=== PATIENT | male | born 1960 | race Caucasian/White ===

== ENCOUNTER → 2018-11-10 08:24 | Outpatient (CLI) | payer OTHER, SELFPAY ==
--- NOTE | 2018-11-10 08:27 | RAD_ITS ---
STUDY: X-RAY - LEFT WRIST REASON FOR EXAM: Male, 57 years old. Pain. TECHNIQUE: 3 view(s) of the wrist were obtained. COMPARISON: None. FINDINGS: Normal visualized distal radius and ulna. Normal radiocarpal articulation. Normal distal radioulnar articulation. Normal carpal bones. Normal carpal articulations. Normal carpometacarpal articulation of the thumb. Normal second through fifth carpometacarpal articulations. Normal visualized metacarpal bones. The soft tissue structures are unremarkable. RAD/Wrist min 3 Views IMPRESSION: Normal x-ray examination of the wrist. Electronically Signed: Gideon Krueger MD at 9:40 EDT Tel , Service support ,
== END ==
PROVIDERS: Family Provider Nurse Practitioner Family; PCP Nurse Practitioner Family; Referring Provider Physician Assistant; Visit Provider Physician Assistant
DX: R52 Pain, unspecified (principal)
CPT/HCPCS: 73110

== ENCOUNTER → 2020-01-28 09:46 | Outpatient (CLI) | payer OTHER, SELFPAY ==
[2020-01-28 09:37] VITALS: BMI 28.8
--- NOTE | 2020-01-28 09:47 | RAD_ITS ---
STUDY: X-RAY - RIGHT SHOULDER REASON FOR EXAM: Male, 59 years old. CHRONIC PAIN TECHNIQUE: 4 view(s) of the shoulder. COMPARISON: None. FINDINGS: Normal glenohumeral articulation. Normal acromioclavicular joint. Normal acromion. Normal humeral head and visualized proximal humerus. The soft tissue structures are unremarkable. Normal visualized pulmonary apex. RAD/Shoulder min 2 Views IMPRESSION: Normal x-ray examination of the shoulder. Electronically Signed: Doug Hernadez MD at 19:41 EDT , Service support ,
== END ==
PROVIDERS: PCP Nurse Practitioner Family; Referring Provider Physician Assistant; Visit Provider Physician Assistant
DX: M25.511 Pain in right shoulder (principal)
CPT/HCPCS: 73030

== ENCOUNTER 2023-04-28 11:40 | Day surgery (SDC) | payer OTHER, SELFPAY ==
[2023-04-28 12:11] VITALS: BP 117/78; PULSE 68; RESP 16; TEMP 36.2; O2SAT 98; BMI 30.7
[2023-04-28] MEDS: Lactated Ringers 1,000 ML 15 ML IV (12:26)
[2023-04-28] MEDS: Cefazolin 2 GM in 0.9% Normal Saline (100mL Bag) 100 ML IV (13:49)
[2023-04-28] MEDS: Lidocaine 1% /Epi 1:100 (20ml) 20 ML Vial (13:57)
[2023-04-28] MEDS: Bupivacaine 0.5% PF 10 ML VIAL (13:57)
[2023-04-28 14:35] VITALS: BP 117/78; BP 125/91; PULSE 79; RESP 18; TEMP 37.1; O2SAT 93
[2023-04-28 14:45] VITALS: BP 117/78; BP 127/85; PULSE 71; RESP 18; O2SAT 93
[2023-04-28 14:55] VITALS: BP 117/78; BP 126/95; PULSE 64; RESP 18; TEMP 36.6; O2SAT 99
--- NOTE | 2023-04-28 14:59 | PCM.OPRPT ---
Report of Operation Date of Procedure: 04/28/23 Description of Surgical Findings:: Preoperative diagnosis: Right septic olecranon bursitis Postoperative diagnosis: Right septic olecranon bursitis versus gouty bursitis Procedure: Right septic olecranon bursectomy with irrigation and debridement Surgeon: Cleve Smith DO [place]in Supervisor: Stephenie Sy PA-C Anesthesia: General endotracheal Anesthesiologist: Dr. Soria Complications: None apparent Drains: None Estimated blood loss: 75 cc Urinary output: None IV fluids: 1000 cc crystalloid Specimens: Tissue culture right olecranon bursa Permanent pathologic specimen right olecranon bursa Surgical implants: None Surgical indications: This is a 62-year-old male seen in the outpatient setting for a draining right elbow wound. There has been surrounding erythema. Cultures have been negative to date. Patient has had intermittent fevers. Redness and wound has not resolved with oral antibiotics and local wound care. A CT scan was obtained and demonstrated fluid collection overlying the olecranon as well as remote postsurgical changes suspected to be a coronoid suture repair with suture knots tied over the olecranon dorsal cortex. We discussed due to the persistent bursitis, olecranon bursectomy and irrigation debridement was indicated. The risks, benefits, alternatives to the procedure reviewed with patient at length. Medical and cardiac clearance were obtained prior to the procedure. Informed consent was obtained in the office. Risks of the procedure included but were not limited to bleeding, persistent infection, loss of life or limb, persistent swelling, persistent pain, neurovascular injury, DVT or PE, tendon injury, wound complications, stiffness. Description of procedure: Patient was seen in preoperative holding area. He was identified by name, medical record number, date of . The operative extremity was marked with a surgical marker. We confirmed informed consent with the patient and all questions were answered to her satisfaction. Anesthesia consent was also obtained by the anesthesia team prior to procedure. At time of his procedure, patient was brought to the operative suite and positioned supine on a standard operating table. 2 g Ancef was administered room time. General anesthesia was induced and laryngeal mask airway placed. All bony prominences well-padded. Patient was positioned in lateral decubitus position with the left side up. An axillary roll was placed. Fibular head was free on the down leg. All bony prominences were well-padded in the lateral decubitus position. We positioned the patient in the lateral decubitus position with a beanbag. The operative extremity was brought over a radiolucent post. A well-padded pneumatic tourniquet was applied to right upper arm. We then prepped and draped the right upper extremity in normal, sterile orthopedic fashion after spending the bed 90 degrees. We performed a timeout with all parties in attendance in agreement with the side, site, operation to be performed. No concerns were voiced elected proceed with surgery. Tourniquet was not inflated throughout the entirety of the case. A 5 x 5 mm wound was ellipticized in conjunction with approximately 5 cm longitudinal incision overlying the olecranon. Wound and subjacent bursal tissue was sent for tissue culture. Superficial layer of the bursal sac was excised after elevating it from the skin flaps both radially and ulnarly. I carried the bursal excision deeper down to the level of the ulnar periosteum and fascia. Triceps fascia was left intact. Within the bursal tissue, white crystal tissue was encountered suspicious for gout. Bursa was then excised and sent for permanent specimen. Suture knot was identified along the cortex of the olecranon. Suture was excised sharply with a 15 blade scalpel. No significant fluid or gross purulence was encountered. Was wound was then copiously irrigated normal saline solution. I anesthetized the skin flaps and surrounding tissues with 10 cc 1% lidocaine with epinephrine 1: 100,000 to assist with hemostasis. I then utilized a 0 Vicryl to reduce space by reapproximating the subcutaneous tissue to both the triceps fascia and the ulnar periosteum. Dermis was reapproximated with 3-0 Vicryl suture. Skin was finally reapproximated with horizontal mattress 3-0 nylon suture. Sterile compression dressing was then applied after the limb was cleansed. A well-padded posterior elbow fiberglass splint was then applied with the wrist free in 90 degrees of elbow flexion. Patient was then repositioned in the supine position. He was safely extubated in the operative suite and transferred to her gurney and subsequently to PACU in stable condition. Need for skilled assistant inventory manager: Stephenie Sy PA-C was critical to the outcome of the case. During the course of the procedure the physician assistant inventory manager played a vital role. Her intimate knowledge of my steps in the procedure aided in safe and expedient completion of the procedure. The PA played a vital role in positioning particularly in obtaining the appropriate positioning. The PA was also vital in the retraction of soft tissues during the exposure and protecting vital structures. She also played a vital role in closure with my direct supervision. Post Operative Plan: Weightbearing: Nonweightbearing operative extremity Antibiotics: Ancef 2 g x 1 dose preoperatively, continue doxycycline twice daily for 10 days postoperatively DVT Prophylaxis: Early ambulation, restart home aspirin postop day 1 Watkins: None Dressing: Maintain splint until follow-up keep in a clean, dry and intact. X-Rays: None Pain Medication: Meally prescription sent today Follow-up: 2 week post-operatively with me in the office for wound check
--- NOTE | 2023-04-28 15:03 | PCM.DC ---
Discharge Instructions Follow Up Care Test Results: Test results from this visit will be discussed in further detail at your follow-up appointment, if applicable. Discharge Plan Admission Primary Reason for Your Visit: Right olecranon bursectomy Attending Provider: Cleve Smith Primary Care Provider: William Dickerson NP Instructions Additional Instructions / Restrictions: Follow preprinted instructions from your surgeons office Discharge Orders/Prescriptions Prescriptions: New doxycycline hyclate 75 mg tablet 75 mg PO BID 10 Days Qty: 20 0RF hydrocodone-acetaminophen 5-325 mg tablet 1 tab PO Q6H PRN (Reason: pain) 7 Days Qty: 28 0RF Continued meloxicam [Mobic] 15 mg tablet 15 mg PO DAILY Qty: 30 1RF Referrals / Follow Up: William Dickerson SCHOOL BUS DRIVER/CUSTODIAN, SCHOOL BUS DRIVER/CUSTODIAN-C [Primary Care Provider] - Disposition Disposition (needs filled in before D/C Order can be placed): Home, Self Care
[2023-04-28 15:35] VITALS: BP 117/78
--- NOTE | 2023-04-28 16:09 | BUR_PTH ---
PATIENT: JOSÉ ANTONIO MURRAY I LOC: [facility] [place] U#:[id number] AGE/SX: 62/M ROOM: RE04/28/[address]: Dr. Cleve Smith DO : 1960 BED: DIS: 04/28/2023 SPEC #: [id number] RECD: 04/28/23 16:09 STATUS: JD REYogesh #: [id number] SHEA: 04/28/23 16:[address]: Cleve Smith DEPT: SURGICAL PATHOLOGY RECD BY: Danya Wolff ENTERED: 04/29/23 07:50 SP TYPE: BURSA OTHR DR: William Dickerson, ANIMAL DAMAGE CONTROL AGENT-C Tissues: Bursa, NOS Procedures: Special Stain Group I Surgery Specimen Level III AFB Stain (control) GMS Stain (control) HEADER OPERATION: Right olecranon bursectomy PRE-OP DIAGNOSIS: Right elbow bursitis TISSUE SUBMITTED: Right elbow bursa MICROSCOPIC DIAGNOSIS Right elbow bursa, bursectomy: Necrotizing and non-necrotizing granulomatous inflammation. Negative for acid-fast bacilli and fungal organisms. See comment. AM:gema 05/02/2023 COMMENT AFB and GMS stains with matched controls were used in the evaluation of this case. Polarizable light microscopy does not reveal crystalline debris. Clinical correlation is suggested. MICROSCOPIC DESCRIPTION Slides are reviewed. GROSS DESCRIPTION Received in fixative is one container labeled with the patient's name and designated right elbow bursa. The specimen consists of multiple irregular and indurated fragments of pink-brink soft tissue that in aggregate measure 4.7 x 4.0 x 1.2 cm. Credit Checker sections are submitted in one cassette. / AM:gema 04/29/2023 TC:3 CPT: 25129, 27120 x2
== END 2023-04-28 15:45 | disposition home or self-care (01) ==
LOC: SDC 11:43 → AC 11:45
PROVIDERS: PCP Nurse Practitioner Primary Care; Referring Provider Student in an Organized Health Care Education/Training Program; Visit Provider Student in an Organized Health Care Education/Training Program
PROC: (CPT 24105; principal; 2023-04-28 13:10)
DX: M70.21 Olecranon bursitis, right elbow (principal); F17.220 Nicotine dependence, chewing tobacco, uncomplicated; L03.113 Cellulitis of right upper limb; E66.8 Other obesity; Z68.31 Body mass index [BMI] 31.0-31.9, adult; Z71.3 Dietary counseling and surveillance; Z86.16 Personal history of COVID-19
CPT/HCPCS: 24105; 01710; 87070; 87075; 87176; 87205; 88304; 88312; J7120; J2405

== ENCOUNTER → 2024-03-23 | Outpatient (CLI) | payer OTHER, SELFPAY ==
[2024-03-23 12:20] LABS: Absolute Neutrophil Count 4.5 X10^3/uL (2.0-7.7); Basophil# 0.06 X10^3/uL; Basophil% 0.8 % (0-1); Eosinophil# 0.18 X10^3/uL; Eosinophils% 2.4 % (0-5); Hematocrit 48.8 % (40-54); Hemoglobin 16.5 g/dL (13.0-16.5); Mean Corp Hgb Conc 33.8 g/dL (32-36); Mean Corpuscular Volume 91.6 fL (80-94); Monocyte# 0.67 X10^3/uL; NRBC Flagged by Analyzer 0 % (0-5); Neutrophil # 4.46 X10^3/uL (2.7-7.7); Neutrophil % 60.3 % (47-70); Platelet Count 293 K/mm3 (150-450); RBC Distribution Width CV 13.3 % (11.6-14.6); Red Blood Count 5.33 M/mm3 (4.6-6.2); White Blood Count 7.4 K/mm3 (4.4-11.0)
[2024-03-23 13:26] LABS: AST(SGOT) 21 U/L (15-37); Alanine Aminotransfer ALT/SGPT 32 U/L (16-61); Albumin, Serum 3.9 g/dL (3.2-5.0); Alkaline Phosphatase 62 U/L (45-117); Anion Gap 8 (5-15); BUN 11 mg/dL (7-18); BUN/Creat Ratio 10.2 RATIO (10-20); Calcium,Total 9.3 mg/dL (8.5-10.1); Chloride 101 mmol/L (98-107); Cholesterol 238 mg/dL (200); Creatinine, Serum 1.08 mg/dL (0.70-1.30); EST Glomerular Filtration Rate 74 mL/min (>60); Est Glom Filt Rate - Afr Amer 89 mL/min (>60); Globulin 4.1 g/dL (2.2-4.2); Glucose 93 mg/dL (74-106); High Density Lipoprotein 60 mg/dL; PSA,Total - Annual Screen 0.38 ng/mL (0.00-4.00); Sodium Level 136 mmol/L (136-145); Triglycerides 212 mg/dL; Very Low Density Lipoprotein 42 mg/dL (5-40)
== END | disposition home or self-care (01) ==
LOC: BIMLAB 10:08
PROVIDERS: PCP Physician Assistant; Referring Provider Physician Assistant; Visit Provider Physician Assistant
DX: Z00.00 Encounter for general adult medical examination without abnormal findings (principal); Z12.5 Encounter for screening for malignant neoplasm of prostate; Z12.11 Encounter for screening for malignant neoplasm of colon
CPT/HCPCS: 36415; 80053; 80061; 84153; 84443; 85025; G0103